=== PATIENT | female | born 1950 | race Caucasian/White ===

== ENCOUNTER 2021-05-27 06:50 | Emergency (ER) | payer OTHER ==
[2021-05-27] MEDS ORDERED: NALOXONE HCL 0.4 MG/ML VIAL ONE ×2 (07:08→09:08)
[2021-05-27] MEDS ORDERED: RAPID SEQUENCE INTUBATION KIT NR ONE (07:16)
[2021-05-27] MEDS ORDERED: LACTATED RINGERS SOLUTION 1000 ML INFUS.BAG IV ONE ×2 (07:44→09:01)
[2021-05-27] MEDS ORDERED: ROCURONIUM BROMIDE 50 MG/5 ML VIAL IV ONE (07:44)
[2021-05-27] MEDS ORDERED: ETOMIDATE 20 MG/10 ML AMPUL IVPUSH ONE (07:44)
[2021-05-27 07:51] VITALS: BMI 30.1
[2021-05-27 08:03] LABS: VENOUS BASE EXCESS -25.1 mmol/L (-2-2)
[2021-05-27] MEDS ORDERED: PIPERACILLIN/TAZOB 3.375 GM 3.375 GM in DEXTROSE 5%-WATER - 50 ML IVPB ONE ×2 (08:06→16:00)
[2021-05-27 08:09] LABS: BASO % 0.1 % (0-2.0); EOS % 0.1 % (0-4.5); HEMATOCRIT 23.3 % (32.4-45.2); HEMOGLOBIN 7.1 GM/dL (10.7-15.3); LYMPH % 15.7 % (8-40); MCH 28.1 pg (25.7-33.7); MCHC 30.4 g/dl (32.0-36.0); MEAN CELL VOLUME 92.5 fl (80-96); MEAN PLT VOLUME 9.1 fl (7.5-11.1); MONO % 3.5 % (3.8-10.2); NEUT % 80.6 % (42.8-82.8); PLATELET COUNT 358 10^3/uL (134-434); RBC 2.52 M/mm3 (3.60-5.2); RDW 16.5 % (11.6-15.6); WHITE BLOOD COUNT 24.5 K/mm3 (4.0-10.0)
[2021-05-27] MEDS ORDERED: MIDAZOLAM IN 0.9 % SOD.CHLORID 100 MG/100 ML PLAST..BAG IVPB SCH (08:15)
[2021-05-27 08:18] LABS: CHLORIDE 95 mmol/L (98-107); SODIUM 129 mmol/L (136-145)
[2021-05-27 08:20] LABS: VENOUS PH 6.85 (7.310-7.410)
[2021-05-27 08:21] LABS: ALBUMIN 1.7 g/dl (3.4-5.0); BLOOD UREA NITROGEN 17.9 mg/dL (7-18); CALCIUM 7.2 mg/dL (8.5-10.1); CO2 9 mmol/L (21-32); MAGNESIUM 2.6 mg/dL (1.8-2.4)
[2021-05-27 08:22] LABS: EPI CELLS 32 /uL (0-25.1); HYALINE CASTS 15 /uL (0-3.1); PH,URINE 5.5 (5.0-8.0); URINE APPEARANCE CLEAR; URINE BACTERIA 4 /uL (0-1359); URINE BILIRUBIN 2+ (NEGATIVE); URINE COLOR ORANGE; URINE GLUCOSE (UA) NEGATIVE (NEGATIVE); URINE KETONE 1+ (NEGATIVE); URINE LEUK ESTERASE NEGATIVE (NEGATIVE); URINE NITRITE NEGATIVE (NEGATIVE); URINE PROTEIN 2+ (NEGATIVE); URINE RBC 36 /uL (0-23.9); URINE WBC 20 /uL (0-25.8)
[2021-05-27 08:24] LABS: CREATININE 1.6 mg/dL (0.55-1.3); SGPT/ALT 861 U/L (13-61)
[2021-05-27 08:25] LABS: BILIRUBIN,TOTAL 1.3 mg/dL (0.2-1); TOT PROT 4.8 g/dl (6.4-8.2)
[2021-05-27 08:27] LABS: ALK PHOS 103 U/L (45-117)
[2021-05-27 08:29] LABS: N-TERMINAL BNP 1310.9 pg/ml (5-125)
[2021-05-27 08:52] LABS: ALLENS TEST POSITIVE; ARTERIAL BLD GAS O2 SATURATION 98.6 mmHg (95-98); ARTERIAL BLOOD GAS BASE EXCESS -25.2 mmol/L (-2-2); ARTERIAL BLOOD GAS PO2 217.8 mmHg (80-100); VENT MODE AC
[2021-05-27 08:53] LABS: VENT RATE 18
[2021-05-27 08:55] LABS: ARTERIAL BLOOD GAS pH 6.863 (7.350-7.450)
[2021-05-27 09:01] LABS: INR 1.77 (0.83-1.09); PROTHROMBIN TIME (PATIENT) 21.1 SEC (9.7-13.0)
[2021-05-27] MEDS ORDERED: VANCOMYCIN 1 GM in D5W (PRE-DOCKED) 1,000 MG/250 ML IVPB ONE (09:01)
[2021-05-27 09:04] LABS: ACTIVATED PTT 35.7 SECONDS (25.2-36.5)
[2021-05-27] MEDS ORDERED: SODIUM BICARBONATE 8.4% - 150 ML ONE (09:10)
[2021-05-27] MEDS ORDERED: VANCOMYCIN 1 GRAM (PRE-DOCKED) 1,000 MG/250 ML BAG IVPB ONE (09:12)
[2021-05-27] MEDS ORDERED: NALOXONE HCL 0.4 MG/ML VIAL IVPUSH ONE ×2 (09:12→10:22)
[2021-05-27] MEDS ORDERED: PIPERACILLIN/TAZOB 3.375 GM 3.375 GM/50 ML BAG IVPB ONE (09:13)
[2021-05-27 09:14] LABS: ANION GAP 25 MMOL/L (8-16); GLUCOSE,RANDOM 68 mg/dL (74-106); LACTIC ACID 18.5 mmol/L (0.4-2.0); LIPASE 1676 U/L (73-393); SGOT/AST 1641 U/L (15-37)
[2021-05-27] MEDS ORDERED: MIDAZOLAM IN 0.9 % SOD.CHLORID 1 MG/1 ML PLAST..BAG ONE (09:41)
[2021-05-27] MEDS ORDERED: SODIUM BICARBONATE 8.4% 50 MEQ/50 ML VIAL IV ONE (09:45)
[2021-05-27] MEDS ORDERED: NOREPINEPHRINE NS PREMIX 8,000 MCG/500 ML BAG IVPB SCH (09:45)
[2021-05-27] MEDS ORDERED: SODIUM CHLORIDE 0.9% 1000 ML INFUS.BAG IV ONE ×2 (10:21)
[2021-05-27 10:53] LABS: CHLORIDE 101 mmol/L (98-107); SODIUM 137 mmol/L (136-145)
[2021-05-27 10:55] LABS: ANION GAP 25 MMOL/L (8-16); BLOOD UREA NITROGEN 18.4 mg/dL (7-18); CO2 11 mmol/L (21-32); VENOUS BASE EXCESS -19.4 mmol/L (-2-2); VENOUS O2 SATURATION 96.8 % (70-80); VENOUS PCO2 37.2 mmHg (38-52)
[2021-05-27 10:58] LABS: CREATININE 1.4 mg/dL (0.55-1.3)
[2021-05-27 11:00] LABS: BILIRUBIN,TOTAL 1.1 mg/dL (0.2-1); TOT PROT 3.4 g/dl (6.4-8.2)
[2021-05-27 11:01] LABS: ALK PHOS 104 U/L (45-117)
[2021-05-27 11:07] LABS: VENOUS PH 7.027 (7.310-7.410)
[2021-05-27 11:28] LABS: ALBUMIN 1.2 g/dl (3.4-5.0); GLUCOSE,RANDOM 62 mg/dL (74-106); LACTIC ACID 17.5 mmol/L (0.4-2.0); SGOT/AST 5396 U/L (15-37); SGPT/ALT 2896 U/L (13-61)
[2021-05-27 11:31] LABS: MACROCYTOSIS 0; PLATELET ESTIMATE NORMAL
[2021-05-27 11:49] LABS: CALCIUM 5.8 mg/dL (8.5-10.1)
[2021-05-27] MEDS ORDERED: HYDROCORTISONE SOD SUCCINATE 100 MG/2 ML VIAL IVPUSH ONE (11:51)
[2021-05-27 12:03] LABS: ANISOCYTOSIS 1+
[2021-05-27] MEDS ORDERED: HYDROCORTISONE SOD SUCCINATE 100 MG/2 ML VIAL ONE (12:03)
[2021-05-27 14:16] LABS: ARTERIAL BLD GAS O2 SATURATION 94.8 mmHg (95-98); ARTERIAL BLOOD GAS BASE EXCESS -24.2 mmol/L (-2-2); ARTERIAL BLOOD GAS PO2 116.2 mmHg (80-100)
[2021-05-27 14:22] LABS: ALLENS TEST POSITIVE
[2021-05-27 14:23] LABS: VENT RATE 20
[2021-05-27] MEDS ORDERED: SODIUM BICARBONATE 8.4% - 150 MEQ in DEXTROSE 5%-WATER - 950 ML IVPB SCH (14:45)
[2021-05-27] MEDS ORDERED: SODIUM BICARBONATE 8.4% 50 MEQ/50 ML VIAL ONE (14:47)
[2021-05-27 15:11] VITALS: TEMP 98
[2021-05-27 15:25] VITALS: BP 106/59; PULSE 108
== END 2021-05-27 15:40 | disposition short-term general hospital (02) ==
LOC: JER 06:50
PROC: 0BH17EZ Insertion of Endotracheal Airway into Trachea, Via Natural or Artificial Opening (ICD-10-PCS; principal; 2021-05-27)
PROC: 3E033GC Introduction of Other Therapeutic Substance into Peripheral Vein, Percutaneous Approach (ICD-10-PCS; 2021-05-27)
PROC: 3E033GC Introduction of Other Therapeutic Substance into Peripheral Vein, Percutaneous Approach (ICD-10-PCS; 2021-05-27)
PROC: 3E033GC Introduction of Other Therapeutic Substance into Peripheral Vein, Percutaneous Approach (ICD-10-PCS; 2021-05-27)
PROC: 3E033NZ Introduction of Analgesics, Hypnotics, Sedatives into Peripheral Vein, Percutaneous Approach (ICD-10-PCS; 2021-05-27)
PROC: 3E033NZ Introduction of Analgesics, Hypnotics, Sedatives into Peripheral Vein, Percutaneous Approach (ICD-10-PCS; 2021-05-27)
PROC: 3E03329 Introduction of Other Anti-infective into Peripheral Vein, Percutaneous Approach (ICD-10-PCS; 2021-05-27)
PROC: 3E03329 Introduction of Other Anti-infective into Peripheral Vein, Percutaneous Approach (ICD-10-PCS; 2021-05-27)
PROC: 3E033GC Introduction of Other Therapeutic Substance into Peripheral Vein, Percutaneous Approach (ICD-10-PCS; 2021-05-27)
PROC: 3E033GC Introduction of Other Therapeutic Substance into Peripheral Vein, Percutaneous Approach (ICD-10-PCS; 2021-05-27)
DX: D62 Acute posthemorrhagic anemia (principal); R65.21 Severe sepsis with septic shock; K85.90 Acute pancreatitis without necrosis or infection, unspecified; N17.9 Acute kidney failure, unspecified; J18.9 Pneumonia, unspecified organism
CPT/HCPCS: 36415; 36430; 36600; 70450-TC; 71045-TC-FY; 71275-TC; 74177-TC; 80053; 81003; 82550; 82803; 83605; 83690; 83735; 83880; 84484; 84703; 85025; 85610; 85730; 86850; 86900; 86901; 86922; 87040; 87086; 87186; 93005; 93010; 99291; C9803; P9058; Q9967; U0003; U0005